=== PATIENT | female | born 1960 | race Two or more races ===

== ENCOUNTER 2025-03-15 13:44 | Inpatient (IN) | payer MEDICARE, BC ==
[~2025-03-15] VITALS: Ht 165.1 cm; Wt 81.6 kg
[2025-03-15] VITALS (23 sets, daily range): BP systolic 91–168; BP diastolic 66–142; TEMP 97.5; O2SAT 98–100
[2025-03-15] MEDS ORDERED: ROCURONIUM BROMIDE 50 MG/5 ML IV ONE (13:48)
[2025-03-15] MEDS ORDERED: ETOMIDATE 2 MG/ML VIAL IV ONE (13:48)
[2025-03-15] MEDS ORDERED: EPINEPHRINE (1:10,000) SYRINGE 1 MG/10 ML DISP.SYRIN IVP ONE (13:48)
[2025-03-15] MEDS: IV NS 0.9% 1,000 ML BAG IV ONE (13:58)
[2025-03-15] MEDS: CEFEPIME 1 GM in IV D5W 50 ML IV ONE (14:00)
[2025-03-15] MEDS: ONDANSETRON HCL/PF 4 MG/2 ML VIAL IVP ONE (14:00)
[2025-03-15 14:15] LABS: PLATELET COUNT (AUTO) 128 K/uL (150-450); RED BLOOD CELL COUNT(AUTO) 4.18 MIL/uL (4.0-5.2); RED CELL DISTRIBUTION WIDTH 13.5 % (11.5-15.0); WHITE BLOOD COUNT (AUTO) 8.2 K/uL (4.3-11.0)
[2025-03-15] MEDS ORDERED: ONDANSETRON HCL/PF 4 MG/2 ML VIAL ONE (14:17)
[2025-03-15] MEDS ORDERED: NOREPINEPHRINE 8MG/250ML RTU 250 ML IV ONE ×2 (14:24→17:23)
[2025-03-15] MEDS ORDERED: IV NS 0.9% 250 ML IV ONE (14:26)
[2025-03-15] MEDS ORDERED: IOHEXOL-350 100 ML VIAL IV ONE (14:26)
[2025-03-15 14:27] LABS: CALCIUM, SERUM 8.5 mg/dL (8.5-10.1); CREATININE 1.0 mg/dL (0.6-1.3); SODIUM SERUM 143 mmol/L (136-145); UREA NITROGEN, BLOOD 20 mg/dL (7-18)
[2025-03-15] MEDS: MORPHINE SULFATE INJ 2 MG/ML DISP.SYRIN IV ONE (14:30)
[2025-03-15] MEDS: LORAZEPAM INJ 2 MG/ML VIAL IV ONE (14:30)
[2025-03-15] MEDS: NOREPINEPHRINE 8 MG in IV D5W 242 ML IV PRN ×2 (14:31→19:24)
[2025-03-15 14:33] LABS: ASPARTATE AMINOTRANSFERASE 183 U/L (15-37); TOTAL PROTEIN, SERUM 6.3 g/dL (6.4-8.2)
[2025-03-15 14:46] LABS: LACTIC ACID 9.0 mmol/L (0.4-2.0)
[2025-03-15 14:52] LABS: INR 1.08 (0.91-1.10)
[2025-03-15] MEDS ORDERED: MIDAZOLAM HCL 200 MG in IV NS 0.9% 60 ML IV PRN (15:30)
[2025-03-15] MEDS ORDERED: HEPARIN SODIUM, PORCINE 5000 UNITS/1 ML VIAL ONE ×2 (15:40→15:41)
[2025-03-15] MEDS ORDERED: HEPARIN INFUSION/D5W 500 ML IV ONE (15:40)
[2025-03-15] MEDS: HEPARIN SODIUM, PORCINE 5000 UNITS/1 ML VIAL IV ONE (15:45)
[2025-03-15] MEDS: HEPARIN INFUSION/D5W 500 ML IV ONE (15:45)
[2025-03-15 16:45] LABS: ABG BASE EXCESS -22.5 mmol/L (-2.0-3.0); ABG OXYGEN SATURATION 99.0 % (94.0-98.0); ABG PCO2 63.3 mmHg (32.0-45.0); ABG PH 6.868 (7.350-7.450); ABG PO2 263.8 mmHg (83.0-108.0); ABG TOTAL HEMOGLOBIN 13.1 G/dL (12.0-16.0); FRACTIONATED INSPIRED OXYGEN 100.0 %; PEEP,BG 5 cm H2O; SET RATE, BG 14.0; SITE, ABG LEFT RADIAL; VT, ABG 450 mL
[2025-03-15] MEDS ORDERED: MIDAZOLAM HCL 100 MG in IV NS 0.9% 80 ML IV PRN ×2 (17:30→18:30)
[2025-03-15] MEDS ORDERED: DOSING PER PHARMACY-VANCOMYCIN IV XX PRN (18:00)
[2025-03-15] MEDS ORDERED: Z GUARD REMEDY 4 OZ OINT TP PRN (18:00)
[2025-03-15] MEDS ORDERED: MIDAZOLAM HCL 50 MG in IV NS 0.9% 40 ML IV PRN (18:00)
[2025-03-15] MEDS ORDERED: ONDANSETRON HCL/PF 4 MG/2 ML VIAL IVP PRN (18:00)
[2025-03-15] MEDS: PANTOPRAZOLE 40 MG VIAL IV SCH (19:02)
[2025-03-15] MEDS: IV NS 0.9% 1,000 ML IV PRN (19:03)
[2025-03-15] MEDS: HEPARIN INFUSION/D5W 500 ML IV PRN (19:06)
[2025-03-15] MEDS: IV NS 0.9% 250 ML IV PRN (20:14)
[2025-03-15] MEDS: VANCOMYCIN 1 GM in IV D5W 250ml IV ONE (20:16)
[2025-03-15 21:03] LABS: ABG BASE EXCESS -14.8 mmol/L (-2.0-3.0); ABG OXYGEN SATURATION 98.2 % (94.0-98.0); ABG PCO2 29.1 mmHg (32.0-45.0); ABG PH 7.216 (7.350-7.450); ABG PO2 144.1 mmHg (83.0-108.0); ABG TOTAL HEMOGLOBIN 13.5 G/dL (12.0-16.0); FRACTIONATED INSPIRED OXYGEN 60.0 %; PEEP,BG 5 cm H2O; SET RATE, BG 28.0; SITE, ABG RIGHT RADIAL; VT, ABG 500 mL
[2025-03-15] MEDS ORDERED: LIDO700A30 TP (21:15)
[2025-03-15] MEDS ORDERED: PROM6.256 PO (21:15)
[2025-03-15] MEDS ORDERED: AZIT250T13 PO (21:15)
[2025-03-15] MEDS ORDERED: IBUP-1953 PO (21:15)
[2025-03-15] MEDS ORDERED: CYCL5TAB PO (21:15)
[2025-03-15] MEDS ORDERED: CHOL200074 PO (21:15)
[2025-03-15] MEDS: CEFEPIME 1 GM in IV D5W 50 ML IV SCH (21:19)
[2025-03-15 23:23] LABS: INR 1.37 (0.91-1.10)
[2025-03-16] VITALS (61 sets, daily range): BP systolic 77–215; BP diastolic 39–192; TEMP 97.6–100.4; O2SAT 100
[2025-03-16] MEDS ORDERED: MIDAZOLAM HCL 100 MG in IV NS 0.9% 80 ML IV PRN (00:30)
[2025-03-16] MEDS: PROPOFOL 100 ML IV PRN (00:35)
[2025-03-16] MEDS ORDERED: CEFEPIME 1 GM in IV D5W 50 ML IV SCH (02:00)
[2025-03-16 02:49] LABS: PLATELET COUNT (AUTO) 138 K/uL (150-450); RED BLOOD CELL COUNT(AUTO) 4.05 MIL/uL (4.0-5.2); RED CELL DISTRIBUTION WIDTH 13.0 % (11.5-15.0); WHITE BLOOD COUNT (AUTO) 15.4 K/uL (4.3-11.0)
[2025-03-16 03:00] LABS: CALCIUM, SERUM 7.3 mg/dL (8.5-10.1); CREATININE 2.1 mg/dL (0.6-1.3); PHOSPHORUS 5.6 mg/dL (2.5-4.9); SODIUM SERUM 142.0 mmol/L (136-145); UREA NITROGEN, BLOOD 30.0 mg/dL (7-18)
[2025-03-16 03:03] LABS: LDL 66.0 mg/dL (0-99)
[2025-03-16] MEDS: VANCOMYCIN 750 MG in IV D5W 250 ML IV SCH (07:51)
[2025-03-16] MEDS: HEPARIN INFUSION/D5W 500 ML IV PRN (08:25)
[2025-03-16 08:41] LABS: ABG BASE EXCESS -10.7 mmol/L (-2.0-3.0); ABG OXYGEN SATURATION 98.5 % (94.0-98.0); ABG PCO2 25.5 mmHg (32.0-45.0); ABG PH 7.337 (7.350-7.450); ABG PO2 145.2 mmHg (83.0-108.0); ABG TOTAL HEMOGLOBIN 12.8 G/dL (12.0-16.0); FRACTIONATED INSPIRED OXYGEN 40.0 %; PEEP,BG 5 cm H2O; SET RATE, BG 28.0; SITE, ABG LEFT RADIAL; VT, ABG 500 mL
[2025-03-16] MEDS: PANTOPRAZOLE 40 MG VIAL IV SCH (20:04)
[2025-03-17] VITALS (54 sets, daily range): BP systolic 73–161; BP diastolic 53–127; TEMP 97.7–99.7; O2SAT 98–100
[2025-03-17 07:00] LABS: PLATELET COUNT (AUTO) 99 K/uL (150-450); RED BLOOD CELL COUNT(AUTO) 3.24 MIL/uL (4.0-5.2); RED CELL DISTRIBUTION WIDTH 13.5 % (11.5-15.0); WHITE BLOOD COUNT (AUTO) 11.8 K/uL (4.3-11.0)
[2025-03-17 07:32] LABS: ASPARTATE AMINOTRANSFERASE 785.0 U/L (15-37); CALCIUM, SERUM 7.2 mg/dL (8.5-10.1); CREATININE 3.9 mg/dL (0.6-1.3); PHOSPHORUS 4.4 mg/dL (2.5-4.9); SODIUM SERUM 143.0 mmol/L (136-145); TOTAL PROTEIN, SERUM 4.9 g/dL (6.4-8.2); UREA NITROGEN, BLOOD 41.0 mg/dL (7-18)
[2025-03-17 07:33] LABS: CREATINE KINASE, TOTAL 229.0 U/L (26-192)
[2025-03-17] MEDS: VANCOMYCIN 750 MG in IV D5W 250 ML IV SCH ×2 (08:00→22:06)
[2025-03-17 08:45] LABS: ABG BASE EXCESS -11.5 mmol/L (-2.0-3.0); ABG OXYGEN SATURATION 96.9 % (94.0-98.0); ABG PCO2 20.5 mmHg (32.0-45.0); ABG PH 7.380 (7.350-7.450); ABG PO2 102.6 mmHg (83.0-108.0); ABG TOTAL HEMOGLOBIN 10.1 G/dL (12.0-16.0); FRACTIONATED INSPIRED OXYGEN 40.0 %; PEEP,BG 0 cm H2O; SET RATE, BG 28.0; SITE, ABG RIGHT BRACHIAL; VT, ABG 500 mL
[2025-03-17] MEDS: FUROSEMIDE 100 MG/10 ML VIAL IV STA (09:43)
[2025-03-17] MEDS: SODIUM BICARBONATE SYR 50 MEQ/50 ML DISP.SYRIN IV ONE (10:45)
[2025-03-17 11:09] LABS: BASOPHILS % (MANUAL) 0 % (0.0-2.0); EOSINOPHILS % (MANUAL) 0 % (0-4); LYMPHOCYTES % (MANUAL) 11 % (16-48); MONOCYTES % (MANUAL) 6 % (0-11.0); NEUTROPHILS % (MANUAL) 83 (42-76); PLATELET ESTIMATE DECREASED
[2025-03-17] MEDS ORDERED: HEPARIN SODIUM, PORCINE 1,000 UNIT/ML VIAL ONE (14:11)
[2025-03-17] MEDS ORDERED: IOHEXOL 50 ML IV ONE (14:11)
[2025-03-17] MEDS ORDERED: LIDOCAINE HCL/MPF 1% 30 ML VIAL IJ ONE (14:11)
[2025-03-17] MEDS ORDERED: ANESTHESIA TRAY IN PYXIS 1 EA TRAY MC ONE (14:12)
[2025-03-17 16:06] LABS: CALCIUM, SERUM 7.1 mg/dL (8.5-10.1); CREATININE 4.1 mg/dL (0.6-1.3); SODIUM SERUM 144.0 mmol/L (136-145); UREA NITROGEN, BLOOD 44.0 mg/dL (7-18)
[2025-03-17 16:28] LABS: LDL 50.0 mg/dL (0-99)
[2025-03-18] VITALS (39 sets, daily range): BP systolic 82–134; BP diastolic 53–104; TEMP 98–98.6; O2SAT 98–100
[2025-03-18 04:38] LABS: PLATELET COUNT (AUTO) 71 K/uL (150-450); RED BLOOD CELL COUNT(AUTO) 2.86 MIL/uL (4.0-5.2); RED CELL DISTRIBUTION WIDTH 13.2 % (11.5-15.0); WHITE BLOOD COUNT (AUTO) 10.2 K/uL (4.3-11.0)
[2025-03-18 05:09] LABS: ASPARTATE AMINOTRANSFERASE 596.0 U/L (15-37); CALCIUM, SERUM 7.4 mg/dL (8.5-10.1); CREATININE 4.4 mg/dL (0.6-1.3); PHOSPHORUS 4.1 mg/dL (2.5-4.9); SODIUM SERUM 144.0 mmol/L (136-145); TOTAL PROTEIN, SERUM 5.0 g/dL (6.4-8.2); UREA NITROGEN, BLOOD 50.0 mg/dL (7-18)
[2025-03-18 05:37] LABS: EOSINOPHILS % (MANUAL) 2 % (0-4); LYMPHOCYTES % (MANUAL) 16 % (16-48); MONOCYTES % (MANUAL) 3 % (0-11.0); NEUTROPHILS % (MANUAL) 79 (42-76); PLATELET ESTIMATE DECREASED
[2025-03-18 08:07] LABS: PTH, INTACT 106 pg/mL (15-65)
[2025-03-18 08:41] LABS: ABG BASE EXCESS -8.2 mmol/L (-2.0-3.0); ABG OXYGEN SATURATION 97.7 % (94.0-98.0); ABG PCO2 22.5 mmHg (32.0-45.0); ABG PH 7.432 (7.350-7.450); ABG PO2 114.0 mmHg (83.0-108.0); ABG TOTAL HEMOGLOBIN 9.5 G/dL (12.0-16.0); FRACTIONATED INSPIRED OXYGEN 40.0 %; PEEP,BG 0 cm H2O; SET RATE, BG 28.0; SITE, ABG RIGHT RADIAL; VT, ABG 500 mL
[2025-03-18] MEDS: IV D5W 1,000 ML IV SCH (10:00)
[2025-03-18] MEDS ORDERED: Magnesium 1GM/D5W 100ML PREMIX PIGGYBACK IV ONE (11:00)
[2025-03-18] MEDS: MGSO4/D5W 100 ML IV SCH (11:00)
[2025-03-18 13:07] LABS: APPEARANCE,URINE CLEAR (CLEAR); BLOOD, URINE 2+ Ery/uL (NEGATIVE); LEUKOCYTE ESTERASE ,URINE NEGATIVE (NEGATIVE); NITRITE, URINE NEGATIVE (NEGATIVE); UGLUCOSE NEGATIVE (NEGATIVE)
[2025-03-18 13:17] LABS: CREATININE, URINE 122.1 MG/DL (30.0-125.0); URINE SODIUM, RANDOM 35.0 mmol/l (40-220); URINE TOTAL PROTEIN 102.2 mg/dL (0-11.9)
[2025-03-18 13:26] LABS: ADD URINE CULTURE NO; COARSE GRANULAR CASTS,URINE Few /LPF (None Seen); SQUAMOUS EPITHELIAL CELL,UR 0-2 /HPF (None Seen)
[2025-03-18 14:12] LABS: EOSINOPHIL,URINE None Seen
[2025-03-18] MEDS: JEVITY 1.2 CAL 1,000 ML BOTTLE NG PRN (17:00)
[2025-03-19] VITALS (24 sets, daily range): BP systolic 92–140; BP diastolic 60–88; TEMP 98–98.2; O2SAT 98–100
[2025-03-19 04:20] LABS: PLATELET COUNT (AUTO) 64 K/uL (150-450); RED BLOOD CELL COUNT(AUTO) 2.59 MIL/uL (4.0-5.2); RED CELL DISTRIBUTION WIDTH 13.2 % (11.5-15.0); WHITE BLOOD COUNT (AUTO) 6.6 K/uL (4.3-11.0)
[2025-03-19 04:39] LABS: ASPARTATE AMINOTRANSFERASE 291.0 U/L (15-37); CALCIUM, SERUM 7.5 mg/dL (8.5-10.1); CREATININE 4.7 mg/dL (0.6-1.3); PHOSPHORUS 4.3 mg/dL (2.5-4.9); SODIUM SERUM 141.0 mmol/L (136-145); TOTAL PROTEIN, SERUM 5.1 g/dL (6.4-8.2); UREA NITROGEN, BLOOD 55.0 mg/dL (7-18)
[2025-03-19 05:18] LABS: EOSINOPHILS % (MANUAL) 4 % (0-4); LYMPHOCYTES % (MANUAL) 12 % (16-48); MONOCYTES % (MANUAL) 7 % (0-11.0); NEUTROPHILS % (MANUAL) 77 (42-76)
[2025-03-19 05:20] LABS: PLATELET ESTIMATE DECREASED
[2025-03-19] MEDS: IV D5W 1,000 ML IV PRN (10:15)
[2025-03-19] MEDS ORDERED: POTASSIUM CHLORIDE 20 MEQ POWDER PACKET GT SCH (11:00)
[2025-03-19] MEDS: CITRIC ACID/SODIUM CITRATE (BICITRA)15 ML UDC PO SCH (11:51)
[2025-03-19] MEDS: POTASSIUM CHLORIDE 20 MEQ POWDER PACKET GT ONE (11:51)
[2025-03-19] MEDS: FENTANYL CITRAT IV 2,500 MCG in IV NS 0.9% 200 ML IV PRN (11:54)
[2025-03-20] VITALS (54 sets, daily range): BP systolic 78–171; BP diastolic 53–103; TEMP 98–99.7; O2SAT 92–100
[2025-03-20 04:33] LABS: PLATELET COUNT (AUTO) 70 K/uL (150-450); RED BLOOD CELL COUNT(AUTO) 2.74 MIL/uL (4.0-5.2); RED CELL DISTRIBUTION WIDTH 13.2 % (11.5-15.0); WHITE BLOOD COUNT (AUTO) 6.9 K/uL (4.3-11.0)
[2025-03-20 04:49] LABS: CALCIUM, SERUM 7.9 mg/dL (8.5-10.1); CREATININE 4.3 mg/dL (0.6-1.3); SODIUM SERUM 140.0 mmol/L (136-145); UREA NITROGEN, BLOOD 61.0 mg/dL (7-18)
[2025-03-20] MEDS: GLUCERNA 1.2 1,000 ML BOTTLE NG PRN (05:39)
[2025-03-20 05:59] LABS: LYMPHOCYTES % (MANUAL) 21 % (16-48); MONOCYTES % (MANUAL) 6 % (0-11.0); NEUTROPHILS % (MANUAL) 73 (42-76); PLATELET ESTIMATE DECREASED
[2025-03-20] MEDS: CEFEPIME 1 GM in IV D5W 50 ML IV SCH (09:07)
[2025-03-20] MEDS: POTASSIUM CHLORIDE 20 MEQ POWDER PACKET GT ONE (10:57)
[2025-03-20] MEDS: PRECEDEX 400 MCG/100 ML BOTTLE 100 ML IV PRN (18:47)
[2025-03-21] VITALS (78 sets, daily range): BP systolic 86–145; BP diastolic 49–106; TEMP 98.3–99.4; O2SAT 94–100
[2025-03-21 03:25] LABS: PLATELET COUNT (AUTO) 75 K/uL (150-450); RED BLOOD CELL COUNT(AUTO) 2.89 MIL/uL (4.0-5.2); RED CELL DISTRIBUTION WIDTH 13.2 % (11.5-15.0); WHITE BLOOD COUNT (AUTO) 8.8 K/uL (4.3-11.0)
[2025-03-21 03:51] LABS: ASPARTATE AMINOTRANSFERASE 101.0 U/L (15-37); CALCIUM, SERUM 8.1 mg/dL (8.5-10.1); CREATININE 3.1 mg/dL (0.6-1.3); PHOSPHORUS 3.6 mg/dL (2.5-4.9); SODIUM SERUM 140.0 mmol/L (136-145); TOTAL PROTEIN, SERUM 5.7 g/dL (6.4-8.2); UREA NITROGEN, BLOOD 34.0 mg/dL (7-18)
[2025-03-21 04:37] LABS: EOSINOPHILS % (MANUAL) 2 % (0-4); LYMPHOCYTES % (MANUAL) 16 % (16-48); MONOCYTES % (MANUAL) 3 % (0-11.0); NEUTROPHILS % (MANUAL) 79 (42-76)
[2025-03-21 04:38] LABS: PLATELET ESTIMATE DECREASED
[2025-03-21 08:16] LABS: ABG BASE EXCESS -2.6 mmol/L (-2.0-3.0); ABG OXYGEN SATURATION 95.1 % (94.0-98.0); ABG PCO2 31.3 mmHg (32.0-45.0); ABG PH 7.443 (7.350-7.450); ABG PO2 82.8 mmHg (83.0-108.0); ABG TOTAL HEMOGLOBIN 9.2 G/dL (12.0-16.0); PEEP,BG 0 cm H2O; SET RATE, BG 18.0; SITE, ABG RIGHT RADIAL; VT, ABG 500 mL
[2025-03-21] MEDS ORDERED: DEXTROSE 50%-WATER 50 ML DISP.SYRIN IV PRN (16:00)
[2025-03-21] MEDS: BLOOD SUGAR DIAGNOSTIC 1 EACH STRIP IN SCH (17:23)
[2025-03-21] MEDS: INSULIN REGULAR, HUMAN 100 UNIT/ML 3 ML VIAL SQ PRN (17:24)
[2025-03-21 20:10] LABS: HEPATITIS B SURFACE AB (QUAL) Non Reactive (.)
[2025-03-22] VITALS (68 sets, daily range): BP systolic 65–148; BP diastolic 44–71; TEMP 98.2–100.1; O2SAT 81–100
[2025-03-22 03:39] LABS: CALCIUM, SERUM 8.2 mg/dL (8.5-10.1); CREATININE 3.0 mg/dL (0.6-1.3); PLATELET COUNT (AUTO) 86 K/uL (150-450); RED BLOOD CELL COUNT(AUTO) 2.79 MIL/uL (4.0-5.2); RED CELL DISTRIBUTION WIDTH 13.4 % (11.5-15.0); SODIUM SERUM 142.0 mmol/L (136-145); UREA NITROGEN, BLOOD 34.0 mg/dL (7-18); WHITE BLOOD COUNT (AUTO) 10.6 K/uL (4.3-11.0)
[2025-03-22] MEDS: CHOLECALCIFEROL 1,000 UNIT TABLET (VIT D3) PO SCH (11:21)
[2025-03-22] MEDS: ACETAMINOPHEN 650 MG/20.3 ML UDC NG PRN (12:36)
[2025-03-23] VITALS (61 sets, daily range): BP systolic 85–135; BP diastolic 48–76; TEMP 98.3–100.1; O2SAT 93–100
[2025-03-23 10:40] LABS: ABG BASE EXCESS 4.5 mmol/L (-2.0-3.0); ABG OXYGEN SATURATION 97.7 % (94.0-98.0); ABG PCO2 37.3 mmHg (32.0-45.0); ABG PH 7.493 (7.350-7.450); ABG PO2 106.8 mmHg (83.0-108.0); ABG TOTAL HEMOGLOBIN 9.5 G/dL (12.0-16.0); FRACTIONATED INSPIRED OXYGEN 40.0 %; PEEP,BG 5 cm H2O; SET RATE, BG 4.0; SITE, ABG LEFT RADIAL; VT, ABG 500 mL
[2025-03-24] VITALS (18 sets, daily range): BP systolic 118–141; BP diastolic 68–87; TEMP 97.2–99.1; O2SAT 93–99
[2025-03-24 13:37] LABS: PLATELET COUNT (AUTO) 127 K/uL (150-450); RED BLOOD CELL COUNT(AUTO) 2.80 MIL/uL (4.0-5.2); RED CELL DISTRIBUTION WIDTH 13.3 % (11.5-15.0); WHITE BLOOD COUNT (AUTO) 11.1 K/uL (4.3-11.0)
[2025-03-24 14:00] LABS: CALCIUM, SERUM 7.8 mg/dL (8.5-10.1); CREATININE 6.0 mg/dL (0.6-1.3); SODIUM SERUM 144.0 mmol/L (136-145); UREA NITROGEN, BLOOD 72.0 mg/dL (7-18)
[2025-03-24] MEDS: PANTOPRAZOLE 40 MG/PACK PACK GT SCH (17:01)
[2025-03-24] MEDS: diphenhydrAMINE HCL ELIX 25 MG/10 ML UDC PO PRN (17:23)
[2025-03-24] MEDS ORDERED: diphenhydrAMINE HCL ELIX 25 MG/10 ML UDC PO PRN (17:30)
[2025-03-25] VITALS: BP 127/60; TEMP 98.4; O2SAT 98
[2025-03-25 04:00] VITALS: BP 140/79; TEMP 98.6; O2SAT 98
[2025-03-25 07:02] LABS: ASPARTATE AMINOTRANSFERASE 22.0 U/L (15-37); CALCIUM, SERUM 8.1 mg/dL (8.5-10.1); CREATININE 6.6 mg/dL (0.6-1.3); PHOSPHORUS 6.4 mg/dL (2.5-4.9); PLATELET COUNT (AUTO) 162 K/uL (150-450); RED BLOOD CELL COUNT(AUTO) 3.19 MIL/uL (4.0-5.2); RED CELL DISTRIBUTION WIDTH 13.3 % (11.5-15.0); SODIUM SERUM 140.0 mmol/L (136-145); TOTAL PROTEIN, SERUM 5.7 g/dL (6.4-8.2); UREA NITROGEN, BLOOD 79.0 mg/dL (7-18); WHITE BLOOD COUNT (AUTO) 12.1 K/uL (4.3-11.0)
[2025-03-25 08:00] VITALS: BP 133/69; TEMP 98; O2SAT 96
[2025-03-25 12:00] VITALS: BP 150/71; TEMP 98.6; O2SAT 99
[2025-03-25 16:00] VITALS: BP 135/70; TEMP 98.1; O2SAT 98
[2025-03-25 20:00] VITALS: BP 132/76; TEMP 98.4; O2SAT 97
[2025-03-25] MEDS: QUETIAPINE FUMARATE 25 MG TABLET PO SCH (21:32)
[2025-03-26] VITALS: BP 121/68; TEMP 98.1; O2SAT 98
[2025-03-26 04:00] VITALS: BP 111/65; TEMP 97.9; O2SAT 97
[2025-03-26 07:47] LABS: PLATELET COUNT (AUTO) 184 K/uL (150-450); RED BLOOD CELL COUNT(AUTO) 3.01 MIL/uL (4.0-5.2); RED CELL DISTRIBUTION WIDTH 13.4 % (11.5-15.0); WHITE BLOOD COUNT (AUTO) 9.8 K/uL (4.3-11.0)
[2025-03-26 08:00] VITALS: BP 138/82; TEMP 98; O2SAT 97
[2025-03-26 08:04] LABS: ASPARTATE AMINOTRANSFERASE 22.0 U/L (15-37); CALCIUM, SERUM 8.1 mg/dL (8.5-10.1); CREATININE 6.8 mg/dL (0.6-1.3); PHOSPHORUS 5.9 mg/dL (2.5-4.9); SODIUM SERUM 138.0 mmol/L (136-145); TOTAL PROTEIN, SERUM 5.6 g/dL (6.4-8.2)
[2025-03-26 08:08] LABS: UREA NITROGEN, BLOOD 82.0 mg/dL (7-18)
[2025-03-26 12:00] VITALS: BP 138/82; TEMP 97.9; O2SAT 97
[2025-03-26 16:00] VITALS: BP 147/79; TEMP 98.5; O2SAT 97
[2025-03-26] MEDS: PANTOPRAZOLE 40 MG/PACK PACK PO SCH (16:53)
[2025-03-26 20:00] VITALS: BP 137/77; TEMP 98.2; O2SAT 97
[2025-03-27] VITALS: BP 135/72; TEMP 98; O2SAT 97
[2025-03-27 04:00] VITALS: BP 120/66; TEMP 98; O2SAT 97
[2025-03-27 08:00] VITALS: BP 133/71; TEMP 98; O2SAT 97
[2025-03-27 12:00] VITALS: BP 133/71; TEMP 98; O2SAT 97
[2025-03-27 16:00] VITALS: BP 133/71; TEMP 98.2; O2SAT 97
[2025-03-27 20:00] VITALS: BP 150/70; TEMP 98.6; O2SAT 96
[2025-03-27] MEDS ORDERED: DEXTROSE 50%-WATER 50 ML DISP.SYRIN IV PRN (21:00)
[2025-03-27] MEDS: INSULIN REGULAR, HUMAN 100 UNIT/ML 3 ML VIAL SQ PRN (21:10)
[2025-03-27] MEDS: BLOOD SUGAR DIAGNOSTIC 1 EACH STRIP IN SCH (21:10)
[2025-03-27 21:38] LABS: APPEARANCE,URINE CLEAR (CLEAR); BLOOD, URINE 1+ Ery/uL (NEGATIVE); LEUKOCYTE ESTERASE ,URINE NEGATIVE (NEGATIVE); NITRITE, URINE NEGATIVE (NEGATIVE); UGLUCOSE NEGATIVE (NEGATIVE)
[2025-03-27 22:03] LABS: ADD URINE CULTURE NO; COARSE GRANULAR CASTS,URINE Few /LPF (None Seen)
[2025-03-27 22:20] LABS: EOSINOPHIL,URINE Few
[2025-03-28] VITALS: BP 134/76; TEMP 98.1; O2SAT 97
[2025-03-28 04:00] VITALS: BP 142/74; TEMP 98; O2SAT 97
[2025-03-28 05:56] LABS: PLATELET COUNT (AUTO) 253 K/uL (150-450); RED BLOOD CELL COUNT(AUTO) 3.07 MIL/uL (4.0-5.2); RED CELL DISTRIBUTION WIDTH 13.0 % (11.5-15.0); WHITE BLOOD COUNT (AUTO) 9.0 K/uL (4.3-11.0)
[2025-03-28 06:10] LABS: ASPARTATE AMINOTRANSFERASE 20.0 U/L (15-37); CALCIUM, SERUM 8.3 mg/dL (8.5-10.1); CREATININE 7.3 mg/dL (0.6-1.3); PHOSPHORUS 6.2 mg/dL (2.5-4.9); SODIUM SERUM 139.0 mmol/L (136-145); TOTAL PROTEIN, SERUM 6.2 g/dL (6.4-8.2)
[2025-03-28 06:12] LABS: CREATINE KINASE, TOTAL 50.0 U/L (26-192)
[2025-03-28 06:14] LABS: UREA NITROGEN, BLOOD 80.0 mg/dL (7-18)
[2025-03-28 07:36] LABS: ERYTHROCYTE SEDIMENTATION RATE 31 MM/HR (0-30)
[2025-03-28 08:00] VITALS: BP 138/78; TEMP 98.8; O2SAT 98
[2025-03-28 12:00] VITALS: BP 151/82; TEMP 99; O2SAT 94
[2025-03-28 16:00] VITALS: BP 151/75; TEMP 100; O2SAT 97
[2025-03-28 20:00] VITALS: BP 146/63; TEMP 98.4; O2SAT 98
[2025-03-29] VITALS: BP 149/79; TEMP 98.1; O2SAT 98
[2025-03-29 04:00] VITALS: BP 147/75; TEMP 98.2; O2SAT 97
[2025-03-29 05:09] LABS: PTH, INTACT 107 pg/mL (15-65)
[2025-03-29 07:56] LABS: PLATELET COUNT (AUTO) 247 K/uL (150-450); RED BLOOD CELL COUNT(AUTO) 2.91 MIL/uL (4.0-5.2); RED CELL DISTRIBUTION WIDTH 12.9 % (11.5-15.0); WHITE BLOOD COUNT (AUTO) 10.0 K/uL (4.3-11.0)
[2025-03-29 08:00] VITALS: BP 180/84; TEMP 98.6; O2SAT 96
[2025-03-29 08:06] LABS: ASPARTATE AMINOTRANSFERASE 19.0 U/L (15-37); CALCIUM, SERUM 8.2 mg/dL (8.5-10.1); CREATININE 7.0 mg/dL (0.6-1.3); PHOSPHORUS 6.0 mg/dL (2.5-4.9); SODIUM SERUM 141.0 mmol/L (136-145); TOTAL PROTEIN, SERUM 6.2 g/dL (6.4-8.2); UREA NITROGEN, BLOOD 76.0 mg/dL (7-18)
[2025-03-29 08:07] LABS: COMPLEMENT C3, SERUM 148 mg/dL (82-167); COMPLEMENT C4, SERUM 31 mg/dL (12-38); HEPATITIS B SURFACE AB (QUAL) Non Reactive (.)
[2025-03-29] MEDS: CLONIDINE HCL 0.1 MG TABLET PO PRN (08:56)
[2025-03-29] MEDS: TRIAMCINOLONE OINT 0.1% 15 GM TUBE TP SCH (09:39)
[2025-03-29 12:00] VITALS: BP 154/81; TEMP 98.4; O2SAT 98
[2025-03-29 16:00] VITALS: BP 136/71; TEMP 98.3; O2SAT 97
[2025-03-29 16:29] LABS: APPEARANCE,URINE CLEAR (CLEAR); BLOOD, URINE 1+ Ery/uL (NEGATIVE); LEUKOCYTE ESTERASE ,URINE NEGATIVE (NEGATIVE); NITRITE, URINE NEGATIVE (NEGATIVE); UGLUCOSE NEGATIVE (NEGATIVE)
[2025-03-29 16:38] LABS: ADD URINE CULTURE YES
[2025-03-29] MEDS: PANTOPRAZOLE 40 MG TABLET.DR PO SCH (17:36)
[2025-03-29 20:00] VITALS: BP 120/63; TEMP 98; O2SAT 97
[2025-03-30] VITALS: BP 130/76; TEMP 98.4; O2SAT 92
[2025-03-30 04:00] VITALS: BP 150/85; TEMP 98.2; O2SAT 93
[2025-03-30 08:00] VITALS: BP 169/81; TEMP 97.9; O2SAT 92
[2025-03-30 08:01] LABS: PLATELET COUNT (AUTO) 289 K/uL (150-450); RED BLOOD CELL COUNT(AUTO) 3.12 MIL/uL (4.0-5.2); RED CELL DISTRIBUTION WIDTH 13.4 % (11.5-15.0); WHITE BLOOD COUNT (AUTO) 9.4 K/uL (4.3-11.0)
[2025-03-30 08:32] LABS: ASPARTATE AMINOTRANSFERASE 18.0 U/L (15-37); CALCIUM, SERUM 8.5 mg/dL (8.5-10.1); CREATININE 5.3 mg/dL (0.6-1.3); PHOSPHORUS 4.7 mg/dL (2.5-4.9); SODIUM SERUM 142.0 mmol/L (136-145); TOTAL PROTEIN, SERUM 6.8 g/dL (6.4-8.2); UREA NITROGEN, BLOOD 50.0 mg/dL (7-18)
[2025-03-30 11:07] LABS: *ANA ANTI-CENTROMERE B AB <0.2 AI (0.0-0.9); *ANA ANTI-DNA(DS) AB, QN <1 IU/mL (0-9); *ANA ANTI-JO-1 <0.2 AI (0.0-0.9); *ANA ANTICHROMATIN ANTIBODY <0.2 AI (0.0-0.9); *ANA RNP ANTIBODIES <0.2 AI (0.0-0.9); *ANA SJOGREN'S ANTI-SS-A <0.2 AI (0.0-0.9); *ANA SJOGREN'S ANTI-SS-B <0.2 AI (0.0-0.9); *ANAANTI-SCLERODERMA-70 AB <0.2 AI (0.0-0.9); *ANASMITH AB <0.2 AI (0.0-0.9)
[2025-03-30 16:00] VITALS: BP 166/80; TEMP 98.1; O2SAT 97
[2025-03-30 20:00] VITALS: BP 150/74; TEMP 97.8; O2SAT 96
[2025-03-31 06:00] VITALS: BP 162/85; TEMP 98.4; O2SAT 96
[2025-03-31 07:11] LABS: *SPE A/G RATIO 0.9 (0.7-1.7); *SPE ALBUMIN 2.2 g/dL (2.9-4.4); *SPE ALPHA-1-GLOBULIN 0.3 g/dL (0.0-0.4); *SPE ALPHA-2-GLOBULIN 0.7 g/dL (0.4-1.0); *SPE BETA GLOBULIN 0.6 g/dL (0.7-1.3); *SPE GLOBULIN, TOTAL 2.4 g/dL (2.2-3.9); *SPE M-SPIKE Not Observed g/dL (Not Observed); *SPE PROTEIN TOTAL 4.6 g/dL (6.0-8.5); *SPEGAMMA GLOBULIN 0.9 g/dL (0.4-1.8)
[2025-03-31 07:23] LABS: PLATELET COUNT (AUTO) 251 K/uL (150-450); RED BLOOD CELL COUNT(AUTO) 2.86 MIL/uL (4.0-5.2); RED CELL DISTRIBUTION WIDTH 14.0 % (11.5-15.0); WHITE BLOOD COUNT (AUTO) 9.7 K/uL (4.3-11.0)
[2025-03-31 08:00] VITALS: BP 179/88; TEMP 98.2; O2SAT 93
[2025-03-31 08:03] LABS: ASPARTATE AMINOTRANSFERASE 24.0 U/L (15-37); CALCIUM, SERUM 8.5 mg/dL (8.5-10.1); CREATININE 5.4 mg/dL (0.6-1.3); PHOSPHORUS 4.7 mg/dL (2.5-4.9); SODIUM SERUM 140.0 mmol/L (136-145); TOTAL PROTEIN, SERUM 6.8 g/dL (6.4-8.2); UREA NITROGEN, BLOOD 48.0 mg/dL (7-18)
[2025-03-31] MEDS ORDERED: LORAZEPAM 0.5 MG TABLET PO PRN (11:30)
[2025-03-31 14:00] VITALS: BP 179/88; TEMP 98.2; O2SAT 93
[2025-03-31 16:00] VITALS: BP 157/87; TEMP 98.2; O2SAT 100
[2025-03-31 22:00] VITALS: BP 147/72; TEMP 98.1; O2SAT 97
[2025-03-31] MEDS: ZOLPIDEM TARTRATE 5 MG TABLET PO PRN (22:04)
[2025-04-01 06:00] VITALS: BP 169/82; TEMP 98.1; O2SAT 98
[2025-04-01 08:19] VITALS: BP 182/88; TEMP 98.2
[2025-04-01] MEDS: FUROSEMIDE 40 MG/4 ML VIAL IV SCH (11:06)
[2025-04-01 11:12] LABS: PLATELET COUNT (AUTO) 318 K/uL (150-450); RED BLOOD CELL COUNT(AUTO) 3.04 MIL/uL (4.0-5.2); RED CELL DISTRIBUTION WIDTH 13.5 % (11.5-15.0); WHITE BLOOD COUNT (AUTO) 9.5 K/uL (4.3-11.0)
[2025-04-01 11:41] LABS: ASPARTATE AMINOTRANSFERASE 29.0 U/L (15-37); CALCIUM, SERUM 8.7 mg/dL (8.5-10.1); CREATININE 5.0 mg/dL (0.6-1.3); PHOSPHORUS 4.1 mg/dL (2.5-4.9); SODIUM SERUM 139.0 mmol/L (136-145); TOTAL PROTEIN, SERUM 7.1 g/dL (6.4-8.2); UREA NITROGEN, BLOOD 44.0 mg/dL (7-18)
[2025-04-01 16:00] VITALS: BP 127/70; TEMP 98.6; O2SAT 94
[2025-04-01 16:45] VITALS: BP 127/70; TEMP 98.6; O2SAT 94
[2025-04-01 20:00] VITALS: BP 148/74; TEMP 99.2; O2SAT 94
[2025-04-02 04:00] VITALS: BP 140/58; TEMP 98.2; O2SAT 94
[2025-04-02 07:56] LABS: ASPARTATE AMINOTRANSFERASE 16.0 U/L (15-37); CALCIUM, SERUM 8.5 mg/dL (8.5-10.1); CREATININE 4.6 mg/dL (0.6-1.3); PHOSPHORUS 4.1 mg/dL (2.5-4.9); SODIUM SERUM 142.0 mmol/L (136-145); TOTAL PROTEIN, SERUM 6.6 g/dL (6.4-8.2); UREA NITROGEN, BLOOD 40.0 mg/dL (7-18)
[2025-04-02 08:00] VITALS: BP 140/58; TEMP 98.2; O2SAT 94
[2025-04-02 08:07] LABS: PLATELET COUNT (AUTO) 265 K/uL (150-450); RED BLOOD CELL COUNT(AUTO) 2.74 MIL/uL (4.0-5.2); RED CELL DISTRIBUTION WIDTH 13.0 % (11.5-15.0); WHITE BLOOD COUNT (AUTO) 8.0 K/uL (4.3-11.0)
[2025-04-02] MEDS ORDERED: CLON0.1T PO (11:16)
[2025-04-02] MEDS ORDERED: ZOLP5TAB8 PO (11:16)
[2025-04-02] MEDS ORDERED: FURO-144 PO (11:16)
[2025-04-02] MEDS ORDERED: ACET650S26 NG (11:16)
[2025-04-02] MEDS ORDERED: INSU100V28 SQ (11:16)
[2025-04-02] MEDS ORDERED: Quetiapine Fumarate PO (11:16)
[2025-04-02] MEDS ORDERED: HYDR-4077 PO (11:16)
[2025-04-02] MEDS ORDERED: PANT40TA49 PO (11:16)
[2025-04-02 13:53] VITALS: BP 169/80
== END 2025-04-02 16:29 | DRG 207 ==
LOC: ER 13:47 → ICU 17:16 → TELE1 03-24 12:11 → MEDSG1 03-30 08:36
PROVIDERS: ADMIT Nurse Practitioner Acute Care; ATTEND Nurse Practitioner Family
PROC: 5A1955Z Respiratory Ventilation, Greater than 96 Consecutive Hours (ICD-10-PCS; principal; 2025-03-15)
PROC: 0BH17EZ Insertion of Endotracheal Airway into Trachea, Via Natural or Artificial Opening (ICD-10-PCS; 2025-03-15)
PROC: 02HV33Z Insertion of Infusion Device into Superior Vena Cava, Percutaneous Approach (ICD-10-PCS; 2025-03-15)
PROC: B548ZZA Ultrasonography of Superior Vena Cava, Guidance (ICD-10-PCS; 2025-03-15)
PROC: 5A12012 Performance of Cardiac Output, Single, Manual (ICD-10-PCS; 2025-03-15)
PROC: 06H03DZ Insertion of Intraluminal Device into Inferior Vena Cava, Percutaneous Approach (ICD-10-PCS; 2025-03-17)
PROC: 06HY33Z Insertion of Infusion Device into Lower Vein, Percutaneous Approach (ICD-10-PCS; 2025-03-20)
PROC: 5A1D70Z Performance of Urinary Filtration, Intermittent, Less than 6 Hours Per Day (ICD-10-PCS; 2025-03-20)
DX: I26.99 Other pulmonary embolism without acute cor pulmonale (principal); J69.0 Pneumonitis due to inhalation of food and vomit; I21.4 Non-ST elevation (NSTEMI) myocardial infarction; J96.01 Acute respiratory failure with hypoxia; J96.02 Acute respiratory failure with hypercapnia; G92.8 Other toxic encephalopathy; I21.A1 Myocardial infarction type 2; N17.0 Acute kidney failure with tubular necrosis; I46.9 Cardiac arrest, cause unspecified; K72.00 Acute and subacute hepatic failure without coma; E44.1 Mild protein-calorie malnutrition; E87.20 Acidosis, unspecified; I82.412 Acute embolism and thrombosis of left femoral vein; R57.9 Shock, unspecified; K92.2 Gastrointestinal hemorrhage, unspecified; R64 Cachexia; F05 Delirium due to known physiological condition; K21.9 Gastro-esophageal reflux disease without esophagitis; E86.0 Dehydration; D64.9 Anemia, unspecified; D69.6 Thrombocytopenia, unspecified; E11.65 Type 2 diabetes mellitus with hyperglycemia; E88.09 Other disorders of plasma-protein metabolism, not elsewhere classified; Z99.2 Dependence on renal dialysis; E87.70 Fluid overload, unspecified; E83.89 Other disorders of mineral metabolism; E83.42 Hypomagnesemia; Z68.30 Body mass index [BMI] 30.0-30.9, adult; E87.6 Hypokalemia; F29 Unspecified psychosis not due to a substance or known physiological condition; R21 Rash and other nonspecific skin eruption; L25.1 Unspecified contact dermatitis due to drugs in contact with skin; S20.422A Blister (nonthermal) of left back wall of thorax, initial encounter; S20.421A Blister (nonthermal) of right back wall of thorax, initial encounter; X58.XXXA Exposure to other specified factors, initial encounter; Y93.89 Activity, other specified; Y92.009 Unspecified place in unspecified non-institutional (private) residence as the place of occurrence of the external cause; T50.8X5A Adverse effect of diagnostic agents, initial encounter; Y84.8 Other medical procedures as the cause of abnormal reaction of the patient, or of later complication, without mention of misadventure at the time of the procedure; Y92.230 Patient room in hospital as the place of occurrence of the external cause
CPT/HCPCS: 31720; 36415; 36600; 70450-TC; 71045-TC; 74018; 76770-TC; 80048-TC; 80053-TC; 80061-TC; 80076-TC; 80202-TC; 81001; 82550-TC; 82570-TC; 82607-TC; 82803-TC; 82962-TC; 83605-TC; 83735-TC; 83921; 83970; 84100-TC; 84155; 84165; 84300-TC; 84425; 84443-TC; 84478-TC; 84484-TC; 85025-TC; 85027-TC; 85610-TC; 85652-TC; 85730-TC; 86225; 86235; 86706; 86803; 86850-TC; 87040-TC; 87081-TC; 87086-TC; 87340; 90935-TC; 92526; 92611; 93307-TC; 93970-TC; 94002-TC; 94003-TC; 94799-TC; 97110-TC; 97116-TC; 97530-TC; 99082-TC; A4223; A6213; C1769; C1880; G0378; J0169; J0692; J1644; J1815; J1938; J2250; J2405; J2470; J3010; J3373; J3374; J3475; J3490; J7030; J7050; J7060; J7070; J7120; Q0163; Q9967